=== PATIENT | male | born 1990 ===

== ENCOUNTER 2024-03-15 02:10 | Emergency (ER) | payer MEDICAID, SELFPAY ==
[2024-03-15 02:15] VITALS: BP 145/95; PULSE 110; RESP 18; TEMP 36.5; O2SAT 92; BMI 25.8
[2024-03-15 02:24] VITALS: BP 145/95; PULSE 110; RESP 18; O2SAT 93
--- NOTE | 2024-03-15 02:36 | ED_ITS ---
HPI - Male Genitourinary General: Chief complaint: Urogenital-Male Stated complaint: tested for stds Time Seen by Provider: 03/15/24 02:25 History of Present Illness: Patient presents to the ER with concerns he has syphilis. Patient states he has had syphilis for over a year. He stated he was treated 2 months ago with a shot but believes that shot did not work for him due to him having returning symptoms. His symptoms as a rash. He has no other complaints at this time. Review of Systems General: Reports: 10 or more systems reviewed and unremarkable except in HPI and below Physical Exam Const: COMMON NORMALS: no acute distress, average body habitus, patient oriented x3, no limitations, healthy appearing, alert and well nourished Neuro: COMMON NORMALS: patient oriented x3 SENSORIUM/ORIENTATION: Yes alert Course Vital Signs: Vital signs: Vital Signs Temperature 97.7 F 03/15/24 02:15 Pulse Rate 110 H 03/15/24 02:24 Respiratory Rate 18 03/15/24 02:24 Blood Pressure 145/95 03/15/24 02:24 Pulse Oximetry 93 03/15/24 02:24 Oxygen Delivery Me thod Room Air 03/15/24 02:24 MDM - Male Medical Decision Making He had concerns about having syphilis. We will refer you back to your family practice physician or your health department. Patient be discharged from the ER. No radiology studies performed this visit Discharge Plan Discharge Patient Disposition: Home Clinical Impression: Concern about STD in male without diagnosis Condition: Stable Discharge Orders: Discharge ED (Routine); Ordered 03/15/24 Ordered By: Asad Gary Patient Instructions: Sexually Transmitted Diseases (ED) Activity Restrictions/Additional Instructions: You have concerns about having syphilis and want treated. We normally do not treat that through the ER. We usually refer you back to your family practice doctor. The health department can also offer definitive testing and treatment. Please refrain from having sexual intercourse until properly tested and treated. Coding Level of Care Code ED Cardiology Specialist for Eleazar Sarabia
== END 2024-03-15 02:44 | disposition home or self-care (01) ==
PROVIDERS: Emergency Provider Emergency Medicine
DX: Z20.2 Contact with and (suspected) exposure to infections with a predominantly sexual mode of transmission (principal)
CPT/HCPCS: 99281